=== PATIENT | male | born 2005 | race Caucasian/White ===

== ENCOUNTER 2025-04-23 08:45 | Emergency (ER) | payer OTHER ==
[~2025-04-23] VITALS: Ht 177.8 cm; Wt 75.0 kg
[2025-04-23 08:46] VITALS: BP 138/69; TEMP 98; O2SAT 96
== END 2025-04-23 10:38 | disposition home or self-care (01) ==
LOC: M ED 08:45
DX: S61.213A Laceration without foreign body of left middle finger without damage to nail, initial encounter (principal); W23.0XXA Caught, crushed, jammed, or pinched between moving objects, initial encounter; Y92.009 Unspecified place in unspecified non-institutional (private) residence as the place of occurrence of the external cause; Y93.89 Activity, other specified; Y99.9 Unspecified external cause status